=== PATIENT | female | born 1965 | race Two or more races ===

== ENCOUNTER → 2017-08-21 13:40 | Outpatient (CLI) | payer OTHER ==
[~2017-08-21 13:40] MED LIST: ALTACE5 MG
== END | disposition home or self-care (01) ==
LOC: LAB 13:40
DX: D64.89 Other specified anemias (principal); M06.4 Inflammatory polyarthropathy; E55.9 Vitamin D deficiency, unspecified; M85.9 Disorder of bone density and structure, unspecified; E21.3 Hyperparathyroidism, unspecified; E88.89 Other specified metabolic disorders; M81.8 Other osteoporosis without current pathological fracture; E56.1 Deficiency of vitamin K

== ENCOUNTER 2017-09-05 13:10 | Outpatient (CLI) | payer OTHER | END 2017-09-05 13:21 | disposition home or self-care (01) | LOC: RAD 13:10 | DX: S62.611A Displaced fracture of proximal phalanx of left index finger, initial encounter for closed fracture (principal) ==

== ENCOUNTER 2018-06-25 14:08 | Outpatient (CLI) | payer OTHER ==
[~2018-06-25 14:08] MED LIST changes: +FLECTOR1 EACH TD
== END 2018-06-25 14:19 | disposition home or self-care (01) ==
LOC: MRI 14:08
DX: M54.2 Cervicalgia (principal)
CPT/HCPCS: 72141

== ENCOUNTER 2018-08-06 11:08 | Outpatient (CLI) | payer OTHER | END 2018-08-06 11:21 | disposition home or self-care (01) | LOC: RAD 501 11:08 | DX: M25.532 Pain in left wrist (principal); M25.571 Pain in right ankle and joints of right foot ==

== ENCOUNTER 2018-09-17 15:06 | Outpatient (CLI) | payer OTHER | END 2018-09-17 15:08 | disposition home or self-care (01) | LOC: MAMO-SONO 15:06 | DX: N60.11 Diffuse cystic mastopathy of right breast (principal); Z12.31 Encounter for screening mammogram for malignant neoplasm of breast ==

== ENCOUNTER 2019-02-26 14:26 | Outpatient (CLI) | payer OTHER | END 2019-02-26 15:12 | disposition home or self-care (01) | LOC: NUCLEAR 14:26 | DX: M81.0 Age-related osteoporosis without current pathological fracture (principal); M85.9 Disorder of bone density and structure, unspecified ==

== ENCOUNTER 2019-03-26 16:50 | Outpatient (CLI) | payer OTHER | END 2019-03-26 17:05 | disposition home or self-care (01) | LOC: LAB 16:50 | DX: N60.11 Diffuse cystic mastopathy of right breast (principal); E55.9 Vitamin D deficiency, unspecified; M85.88 Other specified disorders of bone density and structure, other site; E21.2 Other hyperparathyroidism; E88.89 Other specified metabolic disorders; M81.8 Other osteoporosis without current pathological fracture; E56.1 Deficiency of vitamin K ==

== ENCOUNTER 2020-09-07 13:49 | Outpatient (CLI) | payer OTHER | END 2020-09-07 14:05 | disposition home or self-care (01) | LOC: SONOGRAMA 13:49 | PROVIDERS: ATTEND Podiatrist Foot Surgery | DX: M72.2 Plantar fascial fibromatosis (principal) ==

== ENCOUNTER 2020-12-20 14:53 | Outpatient (CLI) | payer OTHER | END 2020-12-20 15:06 | disposition home or self-care (01) | LOC: RAD 14:53 | PROVIDERS: ATTEND Neurological Surgery | DX: M54.2 Cervicalgia (principal) ==

== ENCOUNTER 2021-04-20 09:45 | Outpatient (CLI) | payer OTHER | END 2021-04-20 10:00 | disposition home or self-care (01) | LOC: PPH VACUNA 09:45 | PROVIDERS: ATTEND Emergency Medicine Pediatric Emergency Medicine | DX: Z23 Encounter for immunization (principal) ==

== ENCOUNTER 2021-08-01 13:08 | Outpatient (CLI) | payer OTHER | END 2021-08-01 13:24 | disposition home or self-care (01) | LOC: MAMO-SONO 13:08 | PROVIDERS: ATTEND Obstetrics & Gynecology Maternal & Fetal Medicine | DX: N60.11 Diffuse cystic mastopathy of right breast (principal); N64.4 Mastodynia; Z12.31 Encounter for screening mammogram for malignant neoplasm of breast ==

== ENCOUNTER 2021-09-19 15:32 | Emergency (ER) | payer OTHER ==
[~2021-09-19] VITALS: Ht 149.9 cm; Wt 47.2 kg
[2021-09-19] MEDS ORDERED: KAPSPARGO SPRIN25 MG PO (15:40)
== END 2021-09-20 00:38 | disposition home or self-care (01) ==
LOC: ER 15:32
DX: M62.830 Muscle spasm of back (principal); M54.89 Other dorsalgia; I10 Essential (primary) hypertension

== ENCOUNTER 2022-10-01 14:03 | Outpatient (CLI) | payer OTHER ==
[~2022-10-01 14:03] MED LIST changes: +KAPSPARGO SPRIN25 MG PO
== END 2022-10-01 14:20 | disposition home or self-care (01) ==
LOC: RAD 14:03
PROVIDERS: ATTEND Obstetrics & Gynecology
DX: R05.8 Other specified cough (principal); N60.11 Diffuse cystic mastopathy of right breast

== ENCOUNTER 2022-10-01 15:34 | Outpatient (CLI) | payer OTHER | END 2022-10-01 15:40 | disposition home or self-care (01) | LOC: EKG 15:34 | PROVIDERS: ATTEND Obstetrics & Gynecology | DX: R07.89 Other chest pain (principal) ==

== ENCOUNTER 2022-12-26 06:34 | Day surgery (SDC) | payer OTHER ==
[~2022-12-26 06:34] MED LIST changes: +ANTIVERT PO; +CRESTOR5 MG PO; +DYAZIDE PO; +TOPROL XL50 M1 PO
== END 2022-12-26 13:35 | disposition home or self-care (01) ==
LOC: CIR.AMB 06:34
PROVIDERS: ATTEND Obstetrics & Gynecology
DX: N84.0 Polyp of corpus uteri (principal); N95.0 Postmenopausal bleeding; N84.1 Polyp of cervix uteri; Z20.822 Contact with and (suspected) exposure to COVID-19; I10 Essential (primary) hypertension

== ENCOUNTER 2024-01-14 09:56 | Outpatient (CLI) | payer OTHER | END 2024-01-14 10:08 | disposition home or self-care (01) | LOC: SONOGRAMA 09:56 | PROVIDERS: ATTEND Internal Medicine Gastroenterology | DX: R94.5 Abnormal results of liver function studies (principal) ==

== ENCOUNTER 2024-03-06 11:11 | Outpatient (CLI) | payer OTHER | END 2024-03-06 11:21 | disposition home or self-care (01) | LOC: MRI 11:11 | PROVIDERS: ATTEND Internal Medicine Gastroenterology | DX: K83.8 Other specified diseases of biliary tract (principal) | CPT/HCPCS: 74181 ==

== ENCOUNTER 2025-03-18 10:58 | Outpatient (CLI) | payer OTHER | END 2025-03-18 10:59 | disposition home or self-care (01) | LOC: NUCLEAR 10:58 | PROVIDERS: ATTEND Orthopaedic Surgery | DX: M81.0 Age-related osteoporosis without current pathological fracture (principal) ==

== ENCOUNTER 2025-03-18 11:44 | Outpatient (CLI) | payer OTHER | END 2025-03-18 11:46 | disposition home or self-care (01) | LOC: TOM 11:44 | PROVIDERS: ATTEND Orthopaedic Surgery | DX: M54.50 Low back pain, unspecified (principal); M54.6 Pain in thoracic spine ==